=== PATIENT | female | born 1955 | race Asian ===

== ENCOUNTER 2018-10-21 03:04 | Emergency (ER) | payer BC, OTHER ==
[~2018-10-21] VITALS: Ht 160 cm; Wt 65.3 kg
[2018-10-21 03:04] VITALS: BP_SYST 134
--- NOTE | 2018-10-21 03:04 | NUR ---
Patient to ER bed 5 to gown for evaluation. Side rails up.
--- NOTE | 2018-10-21 03:09 | NUR ---
ED Ronda at bedside for medical evaluation.
--- NOTE | 2018-10-21 03:10 | NUR ---
# 20 gauge angiocath placed to right ac. Use of asceptic technique. Opsite placed over site. Blood return noted. Blood for lab drawn from site. Flushed with 10 cc of normal saline. No evidence of infiltration noted. Patient tolerated well.
--- NOTE | 2018-10-21 03:12 | NUR ---
Called Poison Control at [phone] and spoke with Selena. Per recommendations: 4 hour observation, blood alcohol, tylenol, salycilate and urine drug screen. Dr. Bond notified. Will continue to monitor patient.
--- NOTE | 2018-10-21 03:15 | NUR ---
Patient brought to ER by paramedics from home, s/p intentional ingestion of 5 pills of ambien unknown strength. Per family, patient was involved in a family argument, was observed by family taking the 5 pills then patient left home to "drive around" Patient took the pills around 1:45 am and returned to ER 20 min prior arrival. Patient states that Ambien was prescribed to her after the rotator cuf surgery she had recently. Patient denes Si and is guarded when answering questions. States no prior attempts to self harm. Patient is sleepy with mild confusion noted. VS wnl. On director of cardiac cath lab and under direct staff observation.
[2018-10-21 03:45] LABS: ANION GAP 12 (5-15); CALCIUM 9.1 mg/dL (8.4-11.0); CHLORIDE 101 mmol/L (98-107); CREATININE 0.78 mg/dL (0.55-1.30); GLUCOSE 192 mg/dL (70-99); POTASSIUM 3.5 mmol/L (3.5-5.1); SODIUM SERUM 140 mmol/L (136-145); UREA NITROGEN, BLOOD 13 mg/dL (8-21)
[2018-10-21 03:47] LABS: GFR AFRICAN AMERICAN 95 mL/min (>90)
[2018-10-21 03:54] LABS: BASOPHILS % (AUTO) 0.7 % (0.0-2.0); EOSINOPHILS # (AUTO) 0.2 K/uL (0.0-0.4); EOSINOPHILS % (AUTO) 2.3 % (0.0-4.0); HEMATOCRIT 42.9 % (36-48); HEMOGLOBIN 14.6 g/dL (12.0-16.0); LYMPHOCYTES # (AUTO) 2.8 K/uL (1.0-5.5); LYMPHOCYTES % (AUTO) 39.6 % (20.5-51.5); MEAN CORPUSCULAR HEMOGLOBIN 30 pg (27-31); MEAN CORPUSCULAR HGB CONC 34 % (32-36); MEAN CORPUSCULAR VOLUME 87 fL (79.0-98.0); MONOCYTES # (AUTO) 0.5 K/uL (0.0-1.0); MONOCYTES % (AUTO) 6.5 % (1.7-9.3); NEUTROPHILS # (AUTO) 3.4 K/uL (1.8-7.7); NEUTROPHILS % (AUTO) 50.9 % (40.0-70.0); PLATELET COUNT (AUTO) 261 K/uL (130-430); RED BLOOD CELL COUNT(AUTO) 4.93 MIL/uL (4.2-6.2); RED CELL DISTRIBUTION WIDTH 11.8 % (9.0-15.0); WHITE BLOOD COUNT (AUTO) 6.9 K/uL (4.8-10.8)
[2018-10-21 03:58] LABS: ALANINE AMINOTRANSFERASE 36 U/L (12-78); ALBUMIN 4.2 g/dL (3.4-4.8); ASPARTATE AMINOTRANSFERASE 24 U/L (10-37); TOTAL BILIRUBIN 0.5 mg/dL (0.0-1.0)
[2018-10-21 04:00] LABS: ACETAMINOPHEN < 1 ug/mL (1-30); ALCOHOL, BLOOD < 3 mg/dL (<10)
--- NOTE | 2018-10-21 04:11 | NUR ---
Note debra in EDM - 10/21/18 at 0411 by [email or web address] # 14 FR In and Out catheter with use of sterile technique. Immediate return of 300 ml yellow urine noted. Urine sample collected and sent to lab. Pt tolerated procedure 0.
[2018-10-21 04:30] LABS: BILIRUBIN,URINE NEGATIVE (NEGATIVE); BLOOD, URINE NEGATIVE (NEGATIVE); CLARITY/URINE CLEAR (CLEAR); COLOR,URINE YELLOW (YELLOW); GLUCOSE,URINE 1+ (NEGATIVE); KETONES,URINE TRACE (NEGATIVE); LEUKOCYTE ESTERASE ,URINE NEGATIVE (NEGATIVE); NITRITE, URINE NEGATIVE (NEGATIVE); PH,URINE 5.5 (5.0-8.0); PROTEIN URINE 1+ (NEGATIVE); UROBILINOGEN,URINE 0.2 (0.2-1.0)
--- NOTE | 2018-10-21 04:38 | NUR ---
Patient asleep on gurney. On secured entrance monitor. Family at bedside.
[2018-10-21 04:40] LABS: BARBITURATE, URINE NEGATIVE (NEG <=200); BENZODIAZEPINE, URINE NEGATIVE (NEG <=150); CANNABINOID, URINE NEGATIVE (NEG <=50); COCAINE, URINE NEGATIVE (NEG <=150); METHAMPHETAMINES SCREEN,URINE NEGATIVE (NEG <=500); OPIATE, URINE NEGATIVE (NEG <=100); PHENCYCLIDINE SCREEN,URINE NEGATIVE (NEG <=25); UR TRICYCLIC ANTIDEPRESSANTS NEGATIVE (NEG <=300); URINE AMPHETAMINE NEGATIVE (NEG <=500); URINE METHADONE NEGATIVE (NEG <=200); URINE OXYCODONE SCREEN NEGATIVE (NEG <=100); URINE PROPOXYPHENE SCREEN NEGATIVE (NEG <=300)
[2018-10-21 04:59] LABS: BACTERIA,URINE MANY /HPF (None Seen); WBC,URINE 0-3 /HPF (0-3)
--- NOTE | 2018-10-21 05:59 | NUR ---
Patient asleep. On manager cardiac, family at bedside
--- NOTE | 2018-10-21 07:04 | NUR ---
PT MOVED TO ROOM #5 AND SITTER AT BEDSIDE FOR CLOSER OBSERVATION.
--- NOTE | 2018-10-21 07:20 | NUR ---
PT RESTING, FAMILY AT BEDSIDE. SITTER AT BEDSIDE
--- NOTE | 2018-10-21 08:00 | NUR ---
pt is sitting up in bed. pt is crying in bed stating "can i leave now?" stll awaiting pet team. will continue to monitor.
--- NOTE | 2018-10-21 08:13 | NUR ---
Spoke with poison control for follow up with patient condition, reviewed toxiocology results.
--- NOTE | 2018-10-21 08:30 | NUR ---
RESTING QUIETLY, NO CHANGES, FAMILY AT BEDSIDE.
--- NOTE | 2018-10-21 08:45 | NUR ---
RESTING QUIETLY, FAMILY AT BESIDE FOR SUPPORT.
--- NOTE | 2018-10-21 09:01 | NUR ---
GIVEN BREAKFAST TRAY, FAMILY AT BEDSIDE. NO COMPLAINTS
--- NOTE | 2018-10-21 09:18 | NUR ---
PET Team at bedside assessing patient.
--- NOTE | 2018-10-21 09:32 | NUR ---
RESTING QUIETLY, NO CHANGES. FAMILY AT BEDSIDE.
--- NOTE | 2018-10-21 09:45 | NUR ---
SLEEPING, CLOSE MONITORING, RESTING
--- NOTE | 2018-10-21 10:02 | NUR ---
RESTING, NO CHANGES. FAMILY AT BEDSIDE.
--- NOTE | 2018-10-21 10:16 | NUR ---
NO CHANGES. SLEEPING QUIETLY
--- NOTE | 2018-10-21 10:32 | NUR ---
PT SLEEPING AT THIS TIME. RESTING. FAMILY AT BEDSIDE.
--- NOTE | 2018-10-21 10:45 | NUR ---
SLEEPING, FAMILY AT BEDSIDE.
--- NOTE | 2018-10-21 11:01 | NUR ---
RESTING, PT TALKING ON AND OFF WITH FAMILY. NO COMPLAINTS NOTED .
--- NOTE | 2018-10-21 11:20 | NUR ---
Corrina from [facility] requesting to administer for blood pressure prior to transfer. Accepting Physician Ruperto. MD Rodriguez made aware of patient current B/P.
--- NOTE | 2018-10-21 11:22 | NUR ---
Corrina at [facility] can be notified at [phone].
--- NOTE | 2018-10-21 11:40 | NUR ---
SLEEPING, NO CHANGES.
[2018-10-21] MEDS ORDERED: cloNIDine HCL 0.1 MG TABLET PO ONE (11:45)
--- NOTE | 2018-10-21 13:49 | NUR ---
Patient to be transferred to [facility]. Is being transferred due to higher level of care. Receiving facility has accepting physician and available space. ER physician has signed transfer form. Patient or responsible democrat has agreed to transfer and signed form. Patient belongings inventoried and will be sent with patient. Copy of nursing notes, lab reports, EKG, Physicians Orders and X-rays to be sent with patient. Report called to at receiving facility. Receiving physician is . ambulance service has been called for transfer. ETA is .
[2018-10-21 13:50] VITALS: BP_SYST 143
== END 2018-10-21 13:49 ==
LOC: SED 03:04
DX: T42.6X1A Poisoning by other antiepileptic and sedative-hypnotic drugs, accidental (unintentional), initial encounter (principal); Z88.0 Allergy status to penicillin; Y92.89 Other specified places as the place of occurrence of the external cause
CPT/HCPCS: 36415; 80053; 80307; 81000; 85025; 93005; 99285; G0480; G0481; G0482